=== PATIENT | female | born 1940 | race Caucasian/White ===

== ENCOUNTER → 2017-01-31 | Outpatient (CLI) | payer MEDICARE, OTHER ==
[~2017-01-31] MED LIST: ASPI-587 PO; LISI10TA2 PO; METO-272 PO; OMEG-11 PO; SIMV20TA3 PO
== END ==
LOC: CARD 08:46
PROVIDERS: ATTEND Physician Assistant
DX: I10 Essential (primary) hypertension (principal); E78.2 Mixed hyperlipidemia; R00.2 Palpitations
CPT/HCPCS: 93306

== ENCOUNTER → 2017-02-07 | Outpatient (CLI) | payer MEDICARE, OTHER ==
--- NOTE | 2017-02-07 12:05 | Diagnostic Imaging Report ---
EXAMINATION: DEXA scan. INDICATION: Osteopenia. TECHNIQUE: Bone mineral density estimated based on dual energy radiography over the lumbar spine and femoral necks, was performed. FINDINGS: The lumbar spine T-score is 0.9. This is 19% increased density measurement compared to 10/29/2006 study. T score over the left femoral neck is 0.2 and on the right side is 0.3. This is 2.5% decreased density measurement compared to 2006. IMPRESSION: Bone mineral density measurements are within normal limits. Dictated by: Dictated on workstation # [id number]
== END ==
LOC: RAD 08:57
PROVIDERS: ATTEND Obstetrics & Gynecology
DX: Z13.820 Encounter for screening for osteoporosis (principal)
CPT/HCPCS: 77080

== ENCOUNTER 2017-05-11 23:48 | Inpatient (IN) | payer MEDICARE, OTHER ==
[~2017-05-11] VITALS: Ht 165.1 cm; Wt 81.6 kg
[2017-05-12] MEDS ORDERED: ONDANSETRON 4 MG/2 ML (SDV) Z0FRAN IVP ONE ×3 (00:45→04:45)
[2017-05-12] MEDS ORDERED: KETOROLAC 30 MG/ML VIAL IVP ONE (00:45)
[2017-05-12 00:52] LABS: BILIRUBIN,URINE NEGATIVE (NEGATIVE); CLARITY,URINE CLEAR; COLOR,URINE YELLOW; GLUCOSE, URINE (UA) NEGATIVE (NEGATIVE); KETONES,URINE NEGATIVE (NEGATIVE); LEUKOCYTE ESTERASE ,URINE 3+ (NEGATIVE); NITRITE,URINE NEGATIVE (NEGATIVE); PH,URINE 5 (5-9); PROTEIN,URINE NEGATIVE (NEGATIVE); UROBILINOGEN,URINE NORMAL (NORMAL)
--- NOTE | 2017-05-12 01:00 | ED Back Pain ---
General Chief Complaint: Back Problems Stated Complaint: L AB/SIDE PAIN Nursing Triage Note: PT REPORTS L FLANK PAIN SINCE THIS AM. SHE ALSO C/O N/V. SHE DENIES FEVER OR URINARY S/S. Nursing Sepsis Screen: No Definite Risk Source of Information: Patient, Other Exam Limitations: No Limitations History of Present Illness Date Seen by Provider: May 12, 2017 Time Seen by Provider: 00:59 Initial Comments Patient resists ER by private conveyance with chief complaint of some pain in her left lower back and left flank that started this morning is progressively gotten worse and it is not radiating and described as sharp waxing and waning but constant. Movement makes it worse. She had some nausea and vomited twice now with no blood in it. No diarrhea she is typically constipated and her bowels of been moving the same as usual. She has not had any surgeries on her back or abdomen. She has not had any recent trauma. She does not have sciatica. She has no incontinence of bowel or bladder. Allergies and Home Medications Allergies Coded Allergies: No Known Drug Allergies (Unverified , 06/29/14) Home Medications Aspirin 81 Mg Tablet.dr, 81 MG PO DAILY, (Reported) Lisinopril 10 Mg Tablet, 10 MG PO DAILY, (Reported) Metoprolol Succinate 50 Mg Tab.sr.24h, 50 MG PO DAILY, (Reported) [place]-3S/Dha/Epa/Fish Oil 1 Each Capsule, 2 EACH PO DAILY, (Reported) Simvastatin 20 Mg Tablet, 20 MG PO DAILY, (Reported) Patient Home Medication List Home Medication List Reviewed: Yes Constitutional: No chills, No diaphoresis, No fever, No malaise EENTM: No ear pain, No eye pain Respiratory: No cough Cardiovascular: No chest pain, No palpitations Gastrointestinal: abdominal pain (Left flank), constipation, No diarrhea, nausea, vomiting Genitourinary: No discharge, No dysuria Musculoskeletal: see HPI, back pain Past Krisyoj-Bqroof-Jajjur Hx Patient Social History Alcohol Use: Rarely Uses Recreational Drug Use: No Smoking Status: Never a Smoker 2nd Hand Smoke Exposure: No Recent Foreign Travel: No Contact w/Someone Who Travel: No Recent Infectious Disease Expo: No Recent Hopitalizations: No Immunizations Up To Date Date of Influenza Vaccine: Dec 29, 2013 Seasonal Allergies Seasonal Allergies: No Surgeries History of Surgeries: Yes Surgeries: Orthopedic Respiratory History of Respiratory Disorde: No Cardiovascular History of Cardiac Disorders: Yes (DR. MARTINEZ) Cardiac Disorders: Hypertension Neurological History of Neurological Disord: No Gastrointestinal History of Gastrointestinal Di: No Musculoskeletal History of Musculoskeletal Dis: No Endocrine History of Endocrine Disorders: No Physical Exam Vital Signs Vital Signs - First Documented 05/12/17 00:05 Temp 98.9 Pulse 80 Resp 16 B/P (MAP) 133/76 (95) Pulse Ox 97 O2 Delivery Room Air Capillary Refill : Less Than 3 Seconds General Appearance: WD/WN, Moderate Distress HEENT: PERRL/EOMI, Normal ENT Inspection, Pharynx Normal (oral mucosa mildly dry) Neck: Full Range of Motion, Supple Cardiovascular: Regular Rate, Rhythm, No Murmur, Normal Peripheral Pulses Respiratory: Chest Non Tender, Lungs Clear, Normal Breath Sounds, No Accessory Muscle Use, No Respiratory Distress Gastrointestinal: Non Tender, Soft Back: Normal Inspection, No Vertebral Tenderness, CVA Tenderness (L), No CVA Tenderness (R) Extremity: Normal Capillary Refill, Non Tender, No Pedal Edema Neurologic/Psychiatric: Alert, Oriented x3 Skin: Normal Color, Warm/Dry Progress/Results/Core Measures Results/Orders Lab Results Laboratory Tests Test 05/12/17 00:05 05/12/17 00:06 Range/Units White Blood Count 7.8 4.3-11.0 10^3/uL Red Blood Count 4.72 4.35-5.85 10^6/uL Hemoglobin 14.5 11.5-16.0 G/DL Hematocrit 43 35-52 % Mean Corpuscular Volume 91 80-99 FL Mean Corpuscular Hemoglobin 31 25-34 PG Mean Corpuscular Hemoglobin Concent 34 32-36 G/DL Red Cell Distribution Width 13.4 10.0-14.5 % Platelet Count 327 130-400 10^3/uL Mean Platelet Volume 9.8 7.4-10.4 FL Neutrophils (%) (Auto) 78 H 42-75 % Lymphocytes (%) (Auto) 15 12-44 % Monocytes (%) (Auto) 7 0-12 % Eosinophils (%) (Auto) 1 0-10 % Basophils (%) (Auto) 0 0-10 % Neutrophils # (Auto) 6.0 1.8-7.8 X 10^3 Lymphocytes # (Auto) 1.2 1.0-4.0 X 10^3 Monocytes # (Auto) 0.5 0.0-1.0 X 10^3 Eosinophils # (Auto) 0.0 0.0-0.3 10^3/uL Basophils # (Auto) 0.0 0.0-0.1 10^3/uL Sodium Level 141 135-145 MMOL/L Potassium Level 3.6 3.6-5.0 MMOL/L Chloride Level 105 98-107 MMOL/L Carbon Dioxide Level 25 21-32 MMOL/L Anion Gap 11 5-14 MMOL/L Blood Urea Nitrogen 12 7-18 MG/DL Creatinine 1.01 0.60-1.30 MG/DL Estimat Glomerular Filtration Rate 53 BUN/Creatinine Ratio 12 Glucose Level 137 H 70-105 MG/DL Calcium Level 10.5 H 8.5-10.1 MG/DL Magnesium Level 2.1 1.8-2.4 MG/DL Total Bilirubin 0.7 0.1-1.0 MG/DL Aspartate Amino Transf (AST/SGOT) 23 5-34 U/L Alanine Aminotransferase (ALT/SGPT) 24 0-55 U/L Alkaline Phosphatase 77 40-136 U/L Total Protein 7.9 6.4-8.2 GM/DL Albumin 4.6 H 3.2-4.5 GM/DL Urine Color YELLOW Urine Clarity CLEAR Urine pH 5 5-9 Urine Specific [place] 1.025 H 1.016-1.022 Urine Protein NEGATIVE NEGATIVE Urine Glucose (UA) NEGATIVE NEGATIVE Urine Ketones NEGATIVE NEGATIVE Urine Nitrite NEGATIVE NEGATIVE Urine Bilirubin NEGATIVE NEGATIVE Urine Urobilinogen NORMAL NORMAL MG/DL Urine Leukocyte Esterase 3+ H NEGATIVE Urine RBC (Auto) 3+ H NEGATIVE Urine RBC 10-25 H /HPF Urine WBC 25-50 H /HPF Urine Squamous Epithelial Cells 5-10 /HPF Urine Crystals NONE /LPF Urine Bacteria FEW H /HPF Urine Casts NONE /LPF Urine Mucus NEGATIVE /LPF Urine Culture Indicated YES My Orders Orders - LAKEISHA CHESTER Ketorolac Injection (Toradol Injection) (05/12/17 00:45) Ua Culture If Indicated (05/12/17 00:34) Ondansetron Injection (Zofran Injectio (05/12/17 00:45) Ct Abd/Pelvis Wo(Kidney Stone) (05/12/17 00:56) Saline Lock/Iv-Start (05/12/17 00:56) Cbc With Automated Diff (05/12/17 00:56) Comprehensive Metabolic Panel (05/12/17 00:56) Magnesium (05/12/17 00:56) Urine Culture (05/12/17 00:06) Fentanyl Injection (Sublimaze Injection (05/12/17 01:45) Fentanyl Injection (Sublimaze Injection (05/12/17 01:38) Ondansetron Injection (Zofran Injectio (05/12/17 02:00) Morphine Injection (Morphine Injection (05/12/17 04:00) Ondansetron Injection (Zofran Injectio (05/12/17 04:45) 1/2 Ns W/Kcl 20 Meq/L (0.45% Sodium Chlo (05/12/17 04:45) Medications Given in ED Current Medications Medications Dose Ordered Sig/Amari Route Start Time Stop Time Status Last Admin Dose Admin Fentanyl Citrate 50 mcg ONCE ONCE IVP 05/12/17 01:45 05/12/17 01:46 DC 05/12/17 01:44 50 MCG Ketorolac Tromethamine 10 mg ONCE ONCE IVP 05/12/17 00:45 05/12/17 00:46 DC 05/12/17 00:44 10 MG Morphine Sulfate 2 mg ONCE ONCE IVP 05/12/17 04:00 05/12/17 04:01 DC 05/12/17 04:02 2 MG Ondansetron HCl 4 mg ONCE ONCE IVP 05/12/17 00:45 05/12/17 00:46 DC 05/12/17 00:44 4 MG Ondansetron HCl 4 mg ONCE ONCE IVP 05/12/17 02:00 05/12/17 03:00 DC 05/12/17 01:50 4 MG Ondansetron HCl 4 mg ONCE ONCE IVP 05/12/17 04:45 05/12/17 04:46 DC 05/12/17 04:02 4 MG Vital Signs/I&O Vital Sign - Last 12Hours 05/12/17 00:05 Temp 98.9 Pulse 80 Resp 16 B/P (MAP) 133/76 (95) Pulse Ox 97 O2 Delivery Room Air Blood Pressure Mean: 95 Progress Note : Time: 03:56 Progress Note Pain persists in reviewing some more Zofran. We spoke with Dr. Gama about a small bowel obstruction based on CT imaging. He recommends morphine, Zofran and he'll see the patient in the morning. There is no fluid in the stomach so NG tube is not necessary. Diagnostic Imaging Diagonstic Imaging: CT Plain Films/CT/US/NM/MRI: abdomen, pelvis Comments Cluster of mildly dilated distal small bowel loops in the anterior left abdomen containing air and fecal like small bowel contents distally. Findings may be related to adhesions internal hernia or other etiology with component of partial or early obstruction not excluded. Clinical correlation recommended. No hydronephrosis or ureteral calculus. Reviewed: Reviewed [place] Study, Reviewed by Me Departure Communication (Admissions) Time/Spoke to Admitting Phy: 03:58 Communication Discussed case lab imaging findings with Dr. Gama he recommends morphine and Zofran. Impression Impression: Primary Impression: Small bowel obstruction Disposition: ADMITTED INPATIENT Condition: Stable Admissions Decision to Admit Reason: Admit from ER (General) Decision to Admit/Date: May 12, 2017 Time/Decision to Admit Time: 03:58 Departure-Patient Inst. Referrals: CASSI MARTINEZ MD (PCP) Primary Care Physician CLAYTON CRANE MD (Family) Primary Care Physician Copy Copies To 1: CASSI MARTINEZ MD, TITUS J May 12, 2017 01:00
[2017-05-12 01:02] LABS: BASOPHILS % (AUTO) 0 % (0-10); EOSINOPHILS % (AUTO) 1 % (0-10); HEMATOCRIT 43 % (35-52); HEMOGLOBIN 14.5 G/DL (11.5-16.0); LYMPHOCYTES # (AUTO) 1.2 X 10^3 (1.0-4.0); LYMPHOCYTES % (AUTO) 15 % (12-44); MEAN CORPUSCULAR HEMOGLOBIN 31 PG (25-34); MEAN CORPUSCULAR HGB CONC 34 G/DL (32-36); MEAN CORPUSCULAR VOLUME 91 FL (80-99); MEAN PLATELET VOLUME 9.8 FL (7.4-10.4); MONOCYTES # (AUTO) 0.5 X 10^3 (0.0-1.0); MONOCYTES % (AUTO) 7 % (0-12); NEUTROPHILS % (AUTO) 78 % (42-75); PLATELET COUNT 327 10^3/uL (130-400); RED BLOOD COUNT 4.72 10^6/uL (4.35-5.85); RED CELL DISTRIBUTION WIDTH 13.4 % (10.0-14.5); WHITE BLOOD COUNT 7.8 10^3/uL (4.3-11.0)
[2017-05-12 01:08] LABS: BACTERIA,URINE FEW /HPF; WBC,URINE 25-50 /HPF
[2017-05-12 01:17] LABS: ALBUMIN 4.6 GM/DL (3.2-4.5); BILIRUBIN,TOTAL 0.7 MG/DL (0.1-1.0); CALCIUM 10.5 MG/DL (8.5-10.1); CREATININE SERUM 1.01 MG/DL (0.60-1.30); MAGNESIUM 2.1 MG/DL (1.8-2.4); POTASSIUM 3.6 MMOL/L (3.6-5.0); TOTAL PROTEIN 7.9 GM/DL (6.4-8.2)
[2017-05-12] MEDS ORDERED: fentaNYL INJECTION 100 MCG/2 ML AMP ONE (01:38)
[2017-05-12] MEDS ORDERED: fentaNYL INJECTION 100 MCG/2 ML AMP IVP ONE (01:45)
[2017-05-12] MEDS ORDERED: morphine INJ 10 MG/ML 1ML (SYR OR VIAL) IVP ONE ×2 (04:00→06:15)
[2017-05-12] MEDS ORDERED: 1/2 NS W/KCL 20 MEQ/L 1,000 ML IV SCH ×2 (04:45→08:00)
--- NOTE | 2017-05-12 07:25 | Diagnostic Imaging Report ---
PROCEDURE: CT urinary tract, rule out kidney stone. TECHNIQUE: Multiple contiguous axial images were obtained through the abdomen and pelvis without the use of intravenous contrast. INDICATION: Abdominal pain. COMPARISON: None. FINDINGS: Lung bases are clear. 0.6 cm low-attenuation in the right hepatic lobe is nonspecific but may represent a benign cyst or hemangioma. The liver, pancreas, spleen, adrenals, kidneys, collecting systems and appendix are negative on this noncontrast exam. Moderate atherosclerotic calcifications including a normal caliber abdominal aorta. No free intraperitoneal air or fluid. No lymphadenopathy. No evidence of bowel obstruction. Moderate spondylotic changes in the visualized spine. No acute osseous findings. IMPRESSION: No acute CT findings in the abdomen or pelvis. Specifically, there is no evidence of bowel obstruction. Report was faxed to [facility] ER by mela at 9:17am. Findings were also discussed with Dr. Hoyos by Dr. Francois. SANDRA Stevens, was also notified. Dictated by: Dictated on workstation # [id number]
[2017-05-12 08:00] VITALS: BP 145/79
[2017-05-12] MEDS ORDERED: CATHETER FLUSH 10 ML SYR IV PRN (08:00)
[2017-05-12] MEDS ORDERED: ONDANSETRON 4 MG/2 ML (SDV) Z0FRAN IV PRN (08:00)
[2017-05-12] MEDS: morphine INJ 4 MG/ML 1 ML (VIAL/SYRINGE) IV PRN ×2 (08:10→11:03)
[2017-05-12] MEDS ORDERED: lisINopril 10 MG (PRINIVIL) TABLET PO SCH ×2 (09:00→12:15)
[2017-05-12] MEDS ORDERED: CEPHALEXIN 250 MG (KEFLEX) CAP PO SCH (11:45)
[2017-05-12] MEDS ORDERED: KETOROLAC 15 MG/ML VIAL IVP PRN (11:45)
--- NOTE | 2017-05-12 11:53 | History & Physical-Surgical ---
History of Present Illness History of Present Illness Reason for visit/HPI Pt was admitted to me last night for possible SBO. HPI per ED: Patient presents ER by private conveyance with chief complaint of some pain in her left lower back and left flank that started this morning is progressively gotten worse and it is not radiating and described as sharp waxing and waning but constant. Movement makes it worse. She had some nausea and vomited twice now with no blood in it. No diarrhea she is typically constipated and her bowels of been moving the same as usual. She has not had any surgeries on her back or abdomen. She has not had any recent trauma. She does not have sciatica. She has no incontinence of bowel or bladder. When I talked to pt she said that she woke up at 4:30 Saturday morning, went to the bathroom and then went back to bed and when she woke she had a left hip pain that started getting progressively worse. She states she was able to find a position on the couch (moving hip around to find it) where she had no pain and laid down like that for a while. The pain continued to get worse and then she vomited; she states she vomits when she has very bad pain. She has history of chronic constipation, colonoscopy was normal last year and told by her physician to take laxatives daily. She states she has never had pain like this , she has had back pain but this is different. Pain was worse with movement and rated 7 out of 10 at its worst. Pain didn't go away and so she finally decided to come to the ER. She denies fall or trauma to this area. She denies any dysuria or hematuria. Right now her only complaint is this hip pain, that is only helped by the pain medications. Date of Admission May 12, 2017 at 03:00 Time Seen by Provider: 11:01 I consulted on this patient on 05/12/17 11:46 Attending Physician Milo Gama DO Admitting Physician Gerda Abrams MD Consult Allergies and Home Medications Allergies Coded Allergies: No Known Drug Allergies (Unverified , 06/29/14) Home Medications Aspirin 81 Mg Tablet.dr, 81 MG PO DAILY, (Reported) Lisinopril 10 Mg Tablet, 10 MG PO DAILY, (Reported) Metoprolol Succinate 50 Mg Tab.sr.24h, 50 MG PO DAILY, (Reported) [place]-3S/Dha/Epa/Fish Oil 1 Each Capsule, 2 EACH PO DAILY, (Reported) Simvastatin 20 Mg Tablet, 20 MG PO DAILY, (Reported) Patient Home Medication List Home Medication List Reviewed: Yes Past Nlbpeaf-Ahocrb-Kfzvyx Hx Patient Social History Alcohol Use: Rarely Uses Number of Drinks Today: 0 Recreational Drug Use: No Smoking Status: Former Smoker Type Used: Cigarettes 2nd Hand Smoke Exposure: No Recent Foreign Travel: No Contact w/Someone Who Travel: No Recent Infectious Disease Expo: No Recent Hopitalizations: No Physical Abuse Screen: No Sexual Abuse: No Immunizations Up To Date Date of Influenza Vaccine: Jan 29, 2017 Seasonal Allergies Seasonal Allergies: Yes Surgeries History of Surgeries: Yes Surgeries: Orthopedic Respiratory History of Respiratory Disorde: No Cardiovascular History of Cardiac Disorders: Yes (SEES DR ABRAMS ) Cardiac Disorders: Hypertension Neurological History of Neurological Disord: No Genitourinary History of Genitourinary Disor: No Gastrointestinal History of Gastrointestinal Di: Yes Gastrointestinal Disorders: Gastroesophageal Reflux, Chronic Constipation Musculoskeletal History of Musculoskeletal Dis: Yes Musculoskeletal Disorders: Arthritis Endocrine History of Endocrine Disorders: Yes (WHEN YOUNGER HAD THROID PROBLEMS ) HEENT History of HEENT Disorders: No Cancer History of 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 ) Psychosocial History of Psychiatric Problem: No Integumentary History of Skin or Integumenta: Yes Skin/Integumentary Disorders: Psoriasis Blood Transfusions History of Blood Disorders: No Adverse Reaction to a Blood Tr: Yes Family Medical History Significant Family History: Cancer (brother), Diabetes (mother), Hypertension ( mother and brother), Other Conditions/Hx (Brother has Rheumatoid Arthritis) Constitutional: No chills, No diaphoresis, weakness EENTM: No blurred vision, No double vision, No hoarseness, No mouth pain, No epistaxis, No throat swelling Respiratory: No cough, No dyspnea on exertion, No hemoptysis Cardiovascular: No chest pain, No edema, No palpitations Gastrointestinal: constipation, No diarrhea, nausea, vomiting Genitourinary: No dysuria, No frequency, No hematuria, No hesitancy : No Musculoskeletal: back pain, joint pain, muscle stiffness Skin: No change in color, No change in hair/nails Psychiatric/Neurological: Denies Anxiety, Denies Depressed, Denies Seizure, Denies Tremors, Denies Weakness Other pt denies any abnormal bleeding or bruising, no heat or cold intolerance Physical Exam Vital Signs Vital Signs - First Documented 05/12/17 00:05 Temp 98.9 Pulse 80 Resp 16 B/P (MAP) 133/76 (95) Pulse Ox 97 O2 Delivery Room Air Capillary Refill : Less Than 3 Seconds General Appearance: No Apparent Distress, WD/WN Eyes: Bilateral Eye PERRL, Bilateral Eye EOMI HEENT: Pharynx Normal, Moist Mucous Membranes, No Pale Conjunctivae (L), No Pale Conjunctivae (R), No Scleral Icterus (L), No Scleral Icterus (R) Neck: Full Range of Motion, Normal Inspection, Non Tender, Supple Respiratory: Chest Non Tender, Lungs Clear, Normal Breath Sounds, No Accessory Muscle Use, No Respiratory Distress Cardiovascular: Regular Rate, Rhythm, No Edema, No Murmur Gastrointestinal: Normal Bowel Sounds, No Organomegaly, No Pulsatile Mass, Non Tender, Soft Rectal: Deferred Back: No CVA Tenderness, No Vertebral Tenderness Extremity: Normal Capillary Refill, Normal Inspection, Normal Range of Motion, Non Tender, No Calf Tenderness, Other (Pt has left hip pain that is reproducible with palpatioln) Neurologic/Psychiatric: Alert, Oriented x3, No Motor/Sensory Deficits, Normal 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, 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 as 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 Skin: Normal Color, Warm/Dry Lymphatic: No Adenopathy (neck, axilla or groin) Data Review Labs Laboratory Tests 05/12/17 00:05: White Blood Count 7.8, Red Blood Count 4.72, Hemoglobin 14.5, Hematocrit 43, Mean Corpuscular Volume 91, Mean Corpuscular Hemoglobin 31, Mean Corpuscular Hemoglobin Concent 34, Red Cell Distribution Width 13.4, Platelet Count 327, Mean Platelet Volume 9.8, Neutrophils (%) (Auto) 78H, Lymphocytes (%) (Auto) 15 , Monocytes (%) (Auto) 7, Eosinophils (%) (Auto) 1, Basophils (%) (Auto) 0, Neutrophils # (Auto) 6.0, Lymphocytes # (Auto) 1.2, Monocytes # (Auto) 0.5, Eosinophils # (Auto) 0.0, Basophils # (Auto) 0.0, Sodium Level 141, Potassium Level 3.6, Chloride Level 105, Carbon Dioxide Level 25, Anion Gap 11, Blood Urea Nitrogen 12, Creatinine 1.01, Estimat Glomerular Filtration Rate 53, BUN/ Creatinine Ratio 12, Glucose Level 137H, Calcium Level 10.5H, Magnesium Level 2.1, Total Bilirubin 0.7, Aspartate Amino Transf (AST/SGOT) 23, Alanine Aminotransferase (ALT/SGPT) 24, Alkaline Phosphatase 77, Total Protein 7.9, Albumin 4.6H 05/12/17 00:06: Urine Color YELLOW, Urine Clarity CLEAR, Urine pH 5, Urine Specific [place] 1.025H, Urine Protein NEGATIVE, Urine Glucose (UA) NEGATIVE, Urine Ketones NEGATIVE, Urine Nitrite NEGATIVE, Urine Bilirubin NEGATIVE, Urine Urobilinogen NORMAL, Urine Leukocyte Esterase 3+H, Urine RBC (Auto) 3+H, Urine RBC 10-25H, Urine WBC 25-50H, Urine Squamous Epithelial Cells 5-10, Urine Crystals NONE, Urine Bacteria FEWH, Urine Casts NONE, Urine Mucus NEGATIVE, Urine Culture Indicated YES Assessment/Plan Assessment/Plan Admission Diagonsis Left Hip Pain UTI Gastritis HTN Admission Status: Observation Assessment/Plan 1. Left hip pain 2. UTI 3. Gastric wall thickening, possible gastritis vs. non-dilation of stomach looking like gastritis 4. HTN I will stop the morpine and write for Toradol IV for her musculoskeletal pain. I wrote for a regular diet and will see how she does. She probably needs an EGD as an outpt. Urine looks like a UTI so I started Keflex 500mg BID. I have heplocked her IV and will encourage PO intake. I think the "dilated bowel in LUQ" is actually all colon and not small bowel. Pt does not have a SBO and in fact the radiologist reading specifically says no bowel obstruction. She can restart her HTN medications. Clinical Quality Measures DVT/VTE Risk/Contraindication: Risk Factor Score Per Nursin RFS Level Per Nursing on Admit: 2=Moderate MILO GAMA DO May 12, 2017 11:53
[2017-05-12 12:00] VITALS: BP 125/64
[2017-05-12] MEDS ORDERED: meTOproloL SUCCINATE 50 MG (TOPROL XL) TAB PO SCH (12:15)
--- NOTE | 2017-05-12 13:27 | Discharge Inst-Surgical ---
Discharge Inst-Surgical Depart Medication/Instructions New, Converted or Re-Newed RX: Call to Patients Pharmacy Patient Instructions Follow up Appt: Make appointment with Dr. Romeo for 1 week. Instructions: No strenuous activity. May shower or take a bath. No Smoking Symptoms to Report: Appetite Changes, Extremity Discoloration, Numbness/Tingling, Swelling Increased , Bleeding Excessive, Eyesight Changes, Pain Increased, Urine Color Change, Constipation(Persistent), Fever over 101 degree F, Pain/Pressure in chest, Urinating Difficulty, Cough Up/Vomit Blood, Heart Beat Irreg/Pounding, Pain/ Pressure in jaw, Vaginal Bleeding Increase, Cramps in feet or legs, Lightheadedness, Pain/Pressure in shoulder, Diarrhea(Persistent), Memory Changes Suddenly, Questions/Concerns, Weight gain consecutive days, Dizziness/ Fainting, Nausea/Vomiting, Shortness of Breath, Weight gain over 2 pounds If questions or concerns contact your physician Or seek help at emergency department. Activity Activity as Tolerated: Yes Driving Instructions: You May Drive Diet Discharge Diet: No Restrictions If Any Problems/Questions/Issu: Contact Your Physician, Go to Emergency Room Skin/Wound Care Infection Signs and Symptoms: Increased Redness, Foul Odor of Wound, Increased Drainage, Skin Itchy or Has a Rash, Increased Swelling, Temperature Above 101 F JOSIANE ALANIZ DO May 12, 2017 13:27
[2017-05-12] MEDS ORDERED: SIMV20TA3 PO (13:32)
[2017-05-12] MEDS ORDERED: ASPI-983 PO (13:32)
[2017-05-12] MEDS ORDERED: LISI-552 PO (13:32)
[2017-05-12] MEDS ORDERED: AMLO5TAB2 PO (13:32)
[2017-05-12] MEDS ORDERED: METH2.5T PO (13:32)
[2017-05-12] MEDS ORDERED: FOLI0.4T2 PO (13:33)
[2017-05-12] MEDS ORDERED: CEPH250C PO (13:39)
[2017-05-12] MEDS ORDERED: KETO10TA PO (13:39)
--- OUTSIDE RECORDS SUMMARY | 2017-05-12 14:22 | XMS REPORT | Continuity of Care Document ---
Author Author [facility] Organization [facility] Address Unknown Phone Unavailable Allergies Active Description Code Type Severity Reaction Onset Reported/Identified Relationship to Patient Clinical Status Yes No Known Drug Allergies [id number] Drug Allergy Unknown N/A 06/29/2014 Medications There is no data. 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 07/27/2015 ESTER ALLISON Ot 272.4 HYPERLIPIDEMIA NEC/NOS 07/27/2015 ESTER ALLISON Ot 401.9 HYPERTENSION NOS 07/27/2015 ESTER ALLISON Ot 416.8 CHR PULMON HEART DIS NEC 07/27/2015 ESTER ALLISON Ot 433.10 CAROTID ARTERY OCCLUSION W O CEREBRAL IN 07/27/2015 MELCHOR JENKINS, TAYLOR Bustillos Ot V72.84 EXAM PRE-OPERATIVE NOS 07/27/2015 CASSI MARTINEZ MD Ot Z12.31 ENCNTR SCREEN MAMMOGRAM FOR MALIGNANT NE 07/28/2015 CASSI MARTINEZ MD Ot Z12.31 ENCNTR SCREEN MAMMOGRAM FOR MALIGNANT NE 08/22/2015 CASSI MARTINEZ MD Ot Z12.31 ENCNTR SCREEN MAMMOGRAM FOR MALIGNANT NE 01/19/2016 Ot 401.9 HYPERTENSION NOS 01/19/2016 Ot 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 01/19/2016 ESTER ALLISON Ot 272.4 HYPERLIPIDEMIA NEC/NOS 01/19/2016 ESTER ALLISON Ot 401.9 HYPERTENSION NOS 01/19/2016 YASMANI FLORES, ESTER Brown Ot 416.8 CHR PULMON HEART DIS NEC 01/19/2016 ESTER ALLISON Ot 433.10 CAROTID ARTERY OCCLUSION W O CEREBRAL IN 01/19/2016 TAYLOR ROCHE MD Ot V72.84 EXAM PRE-OPERATIVE NOS 01/19/2016 JUAN JENKINS, CASSI Lazaro Ot Z12.31 ENCNTR SCREEN MAMMOGRAM FOR MALIGNANT NE 01/19/2016 Ot 401.9 HYPERTENSION NOS 01/19/2016 Ot 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 01/19/2016 ESTER ALLISON Ot 272.4 HYPERLIPIDEMIA NEC/NOS 01/19/2016 ESTER ALLISON Ot 401.9 HYPERTENSION NOS 01/19/2016 YASMANI FLORES, ESTER Brown Ot 416.8 CHR PULMON HEART DIS NEC 01/19/2016 ESTER ALLISON Ot 433.10 CAROTID ARTERY OCCLUSION W O CEREBRAL IN 01/19/2016 TAYLOR ROCHE MD Ot V72.84 EXAM PRE-OPERATIVE NOS 01/19/2016 JUAN JENKINS, CASSI Lazaro Ot Z12.31 ENCNTR SCREEN MAMMOGRAM FOR MALIGNANT NE 01/20/2016 ESTER ALLISON Ot E78.2 MIXED HYPERLIPIDEMIA 01/20/2016 ESTER ALLISON Ot I10 ESSENTIAL (PRIMARY) HYPERTENSION 01/20/2016 ESTER ALLISON Ot R00.2 PALPITATIONS 01/20/2016 ESTER ALLISON Ot E78.2 MIXED HYPERLIPIDEMIA 01/20/2016 ESTER ALLISON Ot I10 ESSENTIAL (PRIMARY) HYPERTENSION 01/20/2016 ESTER ALLISON Ot R00.2 PALPITATIONS 02/10/2016 ESTER ALLISON Ot E78.2 MIXED HYPERLIPIDEMIA 02/10/2016 ESTER ALLISON Ot I10 ESSENTIAL (PRIMARY) HYPERTENSION 02/10/2016 ESTER ALLISON Ot R00.2 PALPITATIONS 02/23/2016 ESTER ALLISON Ot E78.2 MIXED HYPERLIPIDEMIA 02/23/2016 ESTER ALLISON Ot I10 ESSENTIAL (PRIMARY) HYPERTENSION 02/23/2016 ESTER ALLISON Ot R00.2 PALPITATIONS 01/22/2017 DELBERT GARNETT DO S Ot Z13.820 ENCOUNTER FOR SCREENING FOR OSTEOPOROSIS 01/22/2017 DELBERT GARNETT DO S Ot Z78.0 ASYMPTOMATIC MENOPAUSAL STATE 01/29/2017 ESTER ALLISON Ot 272.4 HYPERLIPIDEMIA NEC/NOS 01/29/2017 ESTER ALLISON Ot 401.9 HYPERTENSION NOS 01/29/2017 ESTER ALLISON Ot 416.8 CHR PULMON HEART DIS NEC 01/29/2017 ESTER ALLISON Ot 433.10 CAROTID ARTERY OCCLUSION W O CEREBRAL IN 01/29/2017 MELCHOR JENKINS, TAYLOR Bustillos Ot V72.84 EXAM PRE-OPERATIVE NOS 01/29/2017 JUAN JENKINS, CASSI Lazaro Ot Z12.31 ENCNTR SCREEN MAMMOGRAM FOR MALIGNANT NE 01/29/2017 ESTER ALLISON Ot E78.2 MIXED HYPERLIPIDEMIA 01/29/2017 ESTER ALLISON Ot I10 ESSENTIAL (PRIMARY) HYPERTENSION 01/29/2017 ESTER ALLISON Ot R00.2 PALPITATIONS 01/29/2017 DELBERT GARNETT DO S Ot Z78.0 ASYMPTOMATIC MENOPAUSAL STATE 01/31/2017 DELBERT GARNETT DO S Ot Z78.0 ASYMPTOMATIC MENOPAUSAL STATE 02/01/2017 ESTER ALLISON Ot E78.2 MIXED HYPERLIPIDEMIA 02/01/2017 ESTER ALLISON Ot I10 ESSENTIAL (PRIMARY) HYPERTENSION 02/01/2017 ESTER ALLISON Ot R00.2 PALPITATIONS 02/06/2017 DELBERT GARNETT DO S Ot Z78.0 ASYMPTOMATIC MENOPAUSAL STATE 02/21/2017 ESTER ALLISON Ot E78.2 MIXED HYPERLIPIDEMIA 02/21/2017 ESTER ALLISON Ot I10 ESSENTIAL (PRIMARY) HYPERTENSION 02/21/2017 ESTER ALLISON Ot R00.2 PALPITATIONS 03/01/2017 DELBERT GARNETT DO Ot Z13.820 ENCOUNTER FOR SCREENING FOR OSTEOPOROSIS Procedures There is no data. Results There is no data. Encounters ACCT No. Visit Date/Time Discharge Status Pt. Type Provider Facility Loc./Unit Complaint [id number] 02/07/2017 08:57:00 02/07/2017 23:59:59 CLS Outpatient DELBERT GARNETT DO [facility] RAD Z13.820 SCREENING OSTEOPOROSIS [id number] 01/31/2017 10:15:00 01/31/2017 23:59:59 CLS Preadmit ESTER ALLISON [facility] RAD Z12.31 [id number] 01/31/2017 08:46:00 01/31/2017 23:59:59 CLS Outpatient ESTER ALLISON [facility] CARD HTN;Z12.31 [id number] 01/19/2016 09:31:00 01/19/2016 23:59:59 CLS Outpatient ESTER ALLISON [facility] CARD HTN,HLP, PALPITATIONS [id number] 07/27/2015 11:01:00 07/27/2015 23:59:59 CLS Outpatient CASSI MARTINEZ MD [facility] RAD SCREENING,CAROTID ARTERY STENOSIS,HTN,HLP [id number] 06/29/2014 07:25:00 06/29/2014 09:51:00 DIS Outpatient TAYLOR ROCHE MD [facility] SDC SCREENING [id number] 06/28/2014 10:33:00 06/28/2014 23:59:59 CLS Outpatient TAYLOR ROCHE MD [facility] PREOP SCREENING [id number] 08/05/2013 09:38:00 08/05/2013 23:59:59 CLS Outpatient ESTER ALLISON [facility] CARD CAROTID STENOSIS,HTN,HL [id number] 07/27/2015 11:01:00 Document Registration [id number] 07/27/2015 11:01:00 Document Registration [id number] 06/29/2011 08:58:00 Document Registration [id number] 07/11/2010 10:23:00 Document Registration
[2017-05-12 14:37] VITALS: BP 125/64
== END 2017-05-12 14:30 | disposition home or self-care (01) | DRG 556 ==
LOC: EDUNIT# 23:48 → ER 23:52 → 4TH 05-12 03:00
PROVIDERS: ADMIT Surgery; ATTEND Surgery
DX: M25.552 Pain in left hip (principal); N39.0 Urinary tract infection, site not specified; I10 Essential (primary) hypertension; K59.09 Other constipation; K21.9 Gastro-esophageal reflux disease without esophagitis
CPT/HCPCS: 36415; 74176; 80053; 81000; 83735; 85025; 87088

== ENCOUNTER → 2017-10-11 | Outpatient (CLI) | payer MEDICARE, OTHER ==
[~2017-10-11] MED LIST changes: +AMLO5TAB2 PO; +ASPI-983 PO; +CEPH250C PO; +FOLI0.4T2 PO; +KETO10TA PO; +LISI-552 PO; +MTX2.5T PO
--- NOTE | 2017-10-11 10:54 | Diagnostic Imaging Report ---
Clinical indication: Patient with acute right hip pain. No recent trauma. Pain started one month ago and hurts all day. Patient went to chiropractor last week and shortly after visit has pain and limp when walking. Exam: X-ray of the lumbar spine, 3 views. Comparison: None. Findings: There is no acute lumbar spine fracture or dislocation. There is abnormal straightening of the lumbar spine posture and mild right curvature of the lumbar spine. There are severely hypertrophic spurs seen throughout the lumbar spine and lower lumbar spine facet arthropathy. There is multilevel loss in disc height which is severe at the L2-L3 level, moderate to severe at the L5-S1 level, and moderate at the L3-L4 level. There is mild loss in intervertebral disc height at the L4-L5 level. Visualized portions of the sacroiliac joints unremarkable. Impression: 1. There is no acute fracture or dislocation. 2. 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 Dictated by: Dictated on workstation # [id number]
--- NOTE | 2017-10-11 11:04 | Diagnostic Imaging Report ---
Indication: Right hip pain. There is no fracture, dislocation, bony destructive process or avulsion. No acute periosteal reaction. Impression: No abnormality radiographically apparent. Dictated by: Dictated on workstation # [id number]
== END ==
LOC: RAD 08:49
PROVIDERS: ATTEND Family Medicine
DX: M47.816 Spondylosis without myelopathy or radiculopathy, lumbar region (principal)
CPT/HCPCS: 72100; 73502

== ENCOUNTER → 2018-02-03 | Outpatient (CLI) | payer MEDICARE, OTHER ==
[~2018-02-03] MED LIST changes: -AMLO5TAB2 PO; +AMLO5TAB7 PO
--- NOTE | 2018-02-03 09:54 | Diagnostic Imaging Report ---
Indication: Routine screening. Comparison is made with prior mammogram from 01/31/2017 and 07/27/2015. 2-D and 3-D bilateral screening mammography was performed with CAD. Scattered fibroglandular densities are identified bilaterally. Extensive vascular calcifications are noted bilaterally. Benign-appearing mass circumscribed nodule in the upper-outer right breast appears stable. No mass or malignant-appearing microcalcifications are seen. Axillae are unremarkable. Impression: BI-RADS category 2 No mammographic features suspicious for malignancy are identified. ACR BI-RADS Category 2: Benign findings. Result letter will be mailed to the patient. Note: At least 10% of breast cancer is not imaged by mammography. Dictated by: Dictated on workstation # [id number]
== END ==
LOC: RAD 08:26
PROVIDERS: ATTEND Internal Medicine
DX: Z12.31 Encounter for screening mammogram for malignant neoplasm of breast (principal)
CPT/HCPCS: 77067

== ENCOUNTER → 2018-08-07 | Outpatient (CLI) | payer MEDICARE, OTHER ==
[~2018-08-07] MED LIST changes: -AMLO5TAB7 PO; +AMLO5TAB9 PO
== END ==
LOC: CARD 12:29
PROVIDERS: ATTEND Internal Medicine Cardiovascular Disease
DX: I65.29 Occlusion and stenosis of unspecified carotid artery (principal); I10 Essential (primary) hypertension; R00.2 Palpitations; I07.1 Rheumatic tricuspid insufficiency
CPT/HCPCS: 93306

== ENCOUNTER → 2019-02-19 | Outpatient (CLI) | payer MEDICARE, OTHER ==
--- NOTE | 2019-02-19 20:01 | Diagnostic Imaging Report ---
INDICATION: Routine screening. Comparison is made with prior mammograms from 02/03/2018 and 01/31/2017. 2-D and 3-D bilateral screening mammography was performed. The current study was also evaluated with a Computer Aided Detection (CAD) system. 3-D tomosynthesis was also performed and reviewed. FINDINGS: Scattered fibroglandular densities are identified bilaterally. Circumscribed benign nodule in the outer right breast appears stable. Parenchymal and vascular calcifications are again noted bilaterally. No mass or malignant-appearing microcalcifications are seen. Axillae are unremarkable. IMPRESSION: No mammographic features suspicious for malignancy are identified. ACR BI-RADS Category 2: Benign findings. Result letter will be mailed to the patient. Note: At least 10% of breast cancer is not imaged by mammography. Dictated by: Dictated on workstation # [id number]
== END ==
LOC: RAD 14:23
PROVIDERS: ATTEND Internal Medicine
DX: Z12.31 Encounter for screening mammogram for malignant neoplasm of breast (principal)
CPT/HCPCS: 77067

== ENCOUNTER 2019-04-07 05:53 | Outpatient (CLI) | payer MEDICARE, OTHER ==
[~2019-04-07] VITALS: Ht 165.1 cm; Wt 81.8 kg
[~2019-04-07 05:53] MED LIST changes: +SIMV20TA26 PO
[2019-04-07] MEDS ORDERED: OMEG100032 PO (12:32)
[2019-04-07] MEDS ORDERED: APRE30TA2 PO (12:32)
[2019-04-07] MEDS ORDERED: ASPI-983 PO (12:32)
== END 2019-04-07 12:35 | disposition home or self-care (01) ==
LOC: PREOP 05:53
PROVIDERS: ATTEND Specialist
DX: Z01.818 Encounter for other preprocedural examination (principal)

== ENCOUNTER 2019-04-10 09:52 | Day surgery (SDC) | payer MEDICARE, OTHER ==
[~2019-04-10] VITALS: Ht 165 cm; Wt 81.8 kg
[~2019-04-10 09:52] MED LIST changes: +APRE30TA2 PO; +OMEG100032 PO
[2019-04-10 10:00] VITALS: BP 131/68
[2019-04-10] MEDS: TETRACAINE 0.5% OPHTH SOLN 4 ML BTL (SINGLE DOSE ONLY) OU PRN ×4 (10:11→10:46)
[2019-04-10] MEDS ORDERED: POVIDONE (BETADINE) OPHTH SOLN 5% 30 ML OP ONE (10:15)
[2019-04-10] MEDS ORDERED: TIMOLOL MALEATE 0.5% 5 ML (TIMOPTIC) BTL OU PRN (10:15)
[2019-04-10] MEDS ORDERED: LIDOCAINE PF 1% 2 ML VIAL IR PRN (10:15)
[2019-04-10] MEDS ORDERED: MOXIFLOXACIN OPHTH SOLN 5 MG/ML 0.3 ML SYRINGE OP ONE (10:15)
[2019-04-10] MEDS: CYCLOPENTOLATE 1% (CYCLOGYL) 2 ML DROPS OP SCH ×3 (10:25→10:46)
[2019-04-10] MEDS: PHENYLEPHRINE 10% OPHTH (NEO-SYN) 5 ML BTL OU SCH ×3 (10:25→10:46)
--- NOTE | 2019-04-10 11:12 | Ophthalmologist Pre-Op Note ---
Pre-Operative Progress Note H&P Reviewed The H&P was reviewed, patient examined and no changes noted. Date H&P Reviewed: Apr 10, 2019 Time H&P Reviewed: 11:12 Pre-Op Dx Cataract, Right Eye FREEDOM CABRERA MD Apr 10, 2019 11:12
[2019-04-10] MEDS ORDERED: MIDAZOLAM 2 MG/2 ML (VERSED) VIAL ONE (11:14)
[2019-04-10] MEDS ORDERED: acetaZOLAMIDE ER 500 MG CAP (DIAMOX SEQUELS) PO ONE (11:30)
--- NOTE | 2019-04-10 11:34 | Ophthalmology Operative Report ---
Cataract removal/placement IOL PREOPERATIVE DIAGNOSIS: Cataract Right Eye POSTOPERATIVE DIAGNOSIS: Cataract Right Eye PROCEDURE: Cataract removal and placement of posterior chamber implant, right eye SURGEON: Julien Cabrera ANESTHESIA: Topical with sedation COMPLICATIONS: None ESTIMATED BLOOD LOSS: Minimal DESCRIPTION OF PROCEDURE: After proper informed consent was obtained, the patient, a 78 female, was taken to the Operating Room and the right eye was anesthetized with tetracaine. The right eye was then prepped and draped in the usual manner. A wire lid speculum was placed. A paracentesis was made at the left hand position. Preservative free lidocaine was injected into the anterior chamber followed by viscoelastic. A clear corneal incision was made in the temporal position. A capsulorrhexis was preformed and the central nuclear and cortical material were removed. The posterior capsule was polished and Rhett 21.0 AU00T0 IOL was placed into the capsular bag. The residual viscoelastic was aspirated and balanced saline solution was injected into the anterior chamber. Moxifloxacin was injected into the anterior chamber. The wound was checked and found to be water tight. The patient tolerated the procedure well without complications. JULIEN CABRERA MD Apr 10, 2019 11:34
[2019-04-10 11:42] VITALS: BP 117/56
--- NOTE | 2019-04-10 15:12 | Anesthesia-General Post-Op ---
MAC Patient Condition Mental Status/LOC: Same as Preop Cardiovascular: Satisfactory Nausea/Vomiting: Absent Respiratory: Satisfactory Pain: Controlled Complications: Absent Post Op Complications Complications None Follow Up Care/Instructions Patient Instructions None needed. Anesthesiology Discharge Order Discharge Order Patient was seen after the procedure and she was doing well, no complaints, stable vital signs, no apparent adverse anesthesia problems. PHUONG CASEY DO Apr 10, 2019 15:12
== END 2019-04-10 11:42 | disposition home or self-care (01) ==
LOC: SDC 09:52
PROVIDERS: ATTEND Specialist
DX: H25.11 Age-related nuclear cataract, right eye (principal); I10 Essential (primary) hypertension; E78.5 Hyperlipidemia, unspecified; K21.9 Gastro-esophageal reflux disease without esophagitis; Z79.82 Long term (current) use of aspirin; Z87.891 Personal history of nicotine dependence; Z79.899 Other long term (current) drug therapy; Z80.3 Family history of malignant neoplasm of breast; Z83.3 Family history of diabetes mellitus

== ENCOUNTER 2019-04-22 05:34 | Outpatient (CLI) | payer MEDICARE, OTHER ==
[~2019-04-22] VITALS: Ht 165.1 cm; Wt 81.8 kg
== END 2019-04-22 15:20 | disposition home or self-care (01) ==
LOC: PREOP 05:34
PROVIDERS: ATTEND Specialist
DX: Z01.818 Encounter for other preprocedural examination (principal)

== ENCOUNTER 2019-04-24 09:32 | Day surgery (SDC) | payer MEDICARE, OTHER ==
[~2019-04-24] VITALS: Ht 165.1 cm; Wt 81.8 kg
[2019-04-24 10:00] VITALS: BP 125/63
[2019-04-24] MEDS ORDERED: LIDOCAINE PF 1% 2 ML VIAL IR PRN (10:00)
[2019-04-24] MEDS ORDERED: TIMOLOL MALEATE 0.5% 5 ML (TIMOPTIC) BTL OU PRN (10:00)
[2019-04-24] MEDS ORDERED: MOXIFLOXACIN OPHTH SOLN 5 MG/ML 0.3 ML SYRINGE OP ONE (10:00)
[2019-04-24] MEDS ORDERED: POVIDONE (BETADINE) OPHTH SOLN 5% 30 ML OP ONE (10:00)
[2019-04-24] MEDS: TETRACAINE 0.5% OPHTH SOLN 4 ML BTL (SINGLE DOSE ONLY) OU PRN ×4 (10:05→10:34)
[2019-04-24] MEDS: CYCLOPENTOLATE 1% (CYCLOGYL) 2 ML DROPS OP SCH ×3 (10:20→10:34)
[2019-04-24] MEDS: PHENYLEPHRINE 10% OPHTH (NEO-SYN) 5 ML BTL OU SCH ×3 (10:20→10:34)
[2019-04-24] MEDS ORDERED: acetaZOLAMIDE ER 500 MG CAP (DIAMOX SEQUELS) PO ONE (11:00)
--- NOTE | 2019-04-24 11:00 | Ophthalmologist Pre-Op Note ---
Pre-Operative Progress Note H&P Reviewed The H&P was reviewed, patient examined and no changes noted. Date H&P Reviewed: Apr 24, 2019 Time H&P Reviewed: 11:00 Pre-Op Dx Cataract, Left Eye FREEDOM CABRERA MD Apr 24, 2019 11:00
[2019-04-24] MEDS ORDERED: MIDAZOLAM 2 MG/2 ML (VERSED) VIAL ONE (11:08)
--- NOTE | 2019-04-24 11:25 | Ophthalmology Operative Report ---
Cataract removal/placement IOL PREOPERATIVE DIAGNOSIS: Cataract Left Eye POSTOPERATIVE DIAGNOSIS: Cataract Left Eye PROCEDURE: Cataract removal and placement of posterior chamber implant, left eye SURGEON: Julien Cabrera ANESTHESIA: Topical with sedation COMPLICATIONS: None ESTIMATED BLOOD LOSS: Minimal DESCRIPTION OF PROCEDURE: After proper informed consent was obtained, the patient, a 78 female, was taken to the Operating Room and the left eye was anesthetized with tetracaine. The left eye was then prepped and draped in the usual manner. A wire lid speculum was placed. A paracentesis was made at the left hand position. Preservative free lidocaine was injected into the anterior chamber followed by viscoelastic. A clear corneal incision was made in the temporal position. A capsulorrhexis was preformed and the central nuclear and cortical material were removed. The posterior capsule was polished and an Rhett 21.0 AU00T0 was placed into the capsular bag. The residual viscoelastic was aspirated and balanced saline solution was injected into the anterior chamber. Moxifloxacin was injected into the anterior chamber. The wound was checked and found to be water tight. The patient tolerated the procedure well without complications. JULIEN CABRERA MD Apr 24, 2019 11:25
[2019-04-24 11:35] VITALS: BP 126/70
--- NOTE | 2019-04-24 14:30 | Anesthesia-General Post-Op ---
MAC Patient Condition Mental Status/LOC: Same as Preop Cardiovascular: Satisfactory Nausea/Vomiting: Absent Respiratory: Satisfactory Pain: Controlled Complications: Absent Post Op Complications Complications None Follow Up Care/Instructions Patient Instructions None needed. Anesthesiology Discharge Order Discharge Order Patient is doing well, no complaints, stable vital signs, no apparent adverse anesthesia problems. No complications reported per nursing. MATTHEW BETANCUR CRNA Apr 24, 2019 14:30
== END 2019-04-24 11:35 | disposition home or self-care (01) ==
LOC: SDC 09:32
PROVIDERS: ATTEND Specialist
DX: H25.12 Age-related nuclear cataract, left eye (principal); I10 Essential (primary) hypertension; E78.5 Hyperlipidemia, unspecified; K21.9 Gastro-esophageal reflux disease without esophagitis; Z87.891 Personal history of nicotine dependence; Z79.82 Long term (current) use of aspirin; Z79.899 Other long term (current) drug therapy; Z83.3 Family history of diabetes mellitus; Z80.3 Family history of malignant neoplasm of breast

== ENCOUNTER → 2020-02-22 | Outpatient (CLI) | payer MEDICARE, OTHER ==
[~2020-02-22] MED LIST changes: +AMLO-250 PO; -AMLO5TAB9 PO; +ASPI-1238 PO; -ASPI-983 PO
--- NOTE | 2020-02-22 13:17 | Diagnostic Imaging Report ---
INDICATION: Routine screening. Comparison is made with prior mammogram from 02/19/2019 and 02/03/2018. 2-D and 3-D screening mammography was performed with CAD. Scattered fibroglandular densities are identified bilaterally. Circumscribed nodular densities right breast are stable. Benign parenchymal and vascular calcifications bilaterally are noted. No new mass or malignant-appearing microcalcifications are seen. Axillae are unremarkable. IMPRESSION: BI-RADS Category 2 No mammographic features suspicious for malignancy are identified. ACR BI-RADS Category 2: Benign findings. Result letter will be mailed to the patient. Note: At least 10% of breast cancer is not imaged by mammography. Dictated by: Dictated on workstation # [id number]
== END ==
LOC: RAD 09:30
PROVIDERS: ATTEND Internal Medicine
DX: Z12.31 Encounter for screening mammogram for malignant neoplasm of breast (principal)
CPT/HCPCS: 77063; 77067

== ENCOUNTER 2020-04-29 09:32 | Emergency (ER) | payer MEDICARE, OTHER ==
[~2020-04-29] VITALS: Ht 165.1 cm; Wt 77.1 kg
[~2020-04-29 09:32] MED LIST changes: -FOLI0.4T2 PO; +FOLI0.4T6 PO; -LISI-552 PO; +LISI20TA26 PO
--- NOTE | 2020-04-29 09:38 | ED General ---
General Stated Complaint: SYNCOPAL EPISODE History of Present Illness Date Seen by Provider: Apr 29, 2020 Time Seen by Provider: 09:38 Initial Comments 79-year-old female presents with a brief syncopal event. Patient reports that she was at the grocery store this morning and was nauseous while she was at the grocery store. She went to check out before she was finished shopping because she was nauseated and felt like she needed to get out of her vehicle. Shortly after she checked out she took a few steps away from the checkout counter and had a brief syncope event. She does not remember hitting her head. She does have some mild pain on the left side of her head. She denied any other symptoms prior to syncope besides feeling nauseated. She does report that last night she received her second dose of the Moderna Covid vaccine. She denies chest pain, shortness of breath, fever, chills, diarrhea, focal weakness. EMS reports that when they initially arrived she was a little confused but that has resolved. Allergies and Home Medications Allergies Coded Allergies: No Known Drug Allergies (Unverified , 06/29/14) Home Medications Amlodipine Besylate 5 Mg Tablet, 5 MG PO DAILY, (Reported) Apremilast 30 Mg Tablet, 30 MG PO DAILY, (Reported) Aspirin 81 Mg Tablet.dr, 81 MG PO DAILY, (Reported) Folic Acid 0.4 Mg Tablet, 0.4 MG PO DAILY, (Reported) Lisinopril 20 Mg Tablet, 20 MG PO DAILY, (Reported) [place]-3/Dha/Epa/Fish Oil 1,000 Mg Capsule, 1,000 MG PO DAILY, (Reported) Simvastatin 20 Mg Tablet, 20 MG PO HS, (Reported) Patient Home Medication List Home Medication List Reviewed: Yes Review of Systems Review of Systems Constitutional: see HPI; No chills, No fever EENTM: see HPI Respiratory: No cough, No dyspnea on exertion, No short of breath Cardiovascular: No chest pain, No palpitations Gastrointestinal: No abdominal pain, No nausea, No vomiting Genitourinary: no symptoms reported Musculoskeletal: no symptoms reported Skin: no symptoms reported Psychiatric/Neurological: See HPI Hematologic/Lymphatic: No Symptoms Reported Immunological/Allergic: no symptoms reported Past Vpljast-Zazgfx-Qylsoi Hx Past Med/Social Hx: Reviewed Nursing Past Med/Soc Hx Patient Social History Type Used: Cigarettes 2nd Hand Smoke Exposure: No Recent Hopitalizations: No Immunizations Up To Date Date of Influenza Vaccine: Jan 29, 2017 Seasonal Allergies Seasonal Allergies: Yes Past Medical History Surgeries: Yes Orthopedic Respiratory: No Cardiac: Yes (SEES DR MARTINEZ ) Hypertension Neurological: No Genitourinary: No Gastrointestinal: Yes Gastroesophageal Reflux, Chronic Constipation Musculoskeletal: Yes Arthritis Endocrine: Yes (WHEN YOUNGER HAD THROID PROBLEMS ) HEENT: No 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 ) Psychosocial: No Integumentary: Yes Psoriasis Blood Disorders: No Adverse Reaction/Blood Tranf: Yes Family Medical History Cancer, Diabetes, Hypertension, Other Conditions/Hx Physical Exam Vital Signs Vital Signs - First Documented 04/29/20 09:32 Temp 36.2 Pulse 93 Resp 21 B/P (MAP) 134/69 (90) Pulse Ox 96 O2 Delivery Room Air Capillary Refill : Height, Weight, BMI Height: 5'5.00" Weight: 180lbs. 0.0oz. 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 Norm as Tested Skin: Normal Color, Warm/Dry Progress/Results/Core Measures Suspected Sepsis SIRS Temperature: Pulse: Respiratory Rate: Laboratory Tests 04/29/20 10:00: White Blood Count 9.7 Blood Pressure / Mean: Laboratory Tests 04/29/20 10:00: Creatinine 0.95, Platelet Count 290, Total Bilirubin 0.6 Results/Orders Lab Results Laboratory Tests Test 04/29/20 09:46 04/29/20 10:00 Range/Units Glucometer 104 70-110 MG/DL White Blood Count 9.7 4.3-11.0 10^3/uL Red Blood Count 4.61 3.80-5.11 10^6/uL Hemoglobin 13.0 11.5-16.0 g/dL Hematocrit 40 35-52 % Mean Corpuscular Volume 88 80-99 fL Mean Corpuscular Hemoglobin 28 25-34 pg Mean Corpuscular Hemoglobin Concent 32 32-36 g/dL Red Cell Distribution Width 13.2 10.0-14.5 % Platelet Count 290 130-400 10^3/uL Mean Platelet Volume 9.5 9.0-12.2 fL Immature Granulocyte % (Auto) 0 % Neutrophils (%) (Auto) 74 42-75 % Lymphocytes (%) (Auto) 18 12-44 % Monocytes (%) (Auto) 7 0-12 % Eosinophils (%) (Auto) 1 0-10 % Basophils (%) (Auto) 0 0-10 % Neutrophils # (Auto) 7.2 1.8-7.8 10^3/uL Lymphocytes # (Auto) 1.7 1.0-4.0 10^3/uL Monocytes # (Auto) 0.7 0.0-1.0 10^3/uL Eosinophils # (Auto) 0.1 0.0-0.3 10^3/uL Basophils # (Auto) 0.0 0.0-0.1 10^3/uL Immature Granulocyte # (Auto) 0.0 0.0-0.1 10^3/uL Sodium Level 138 135-145 MMOL/L Potassium Level 3.7 3.6-5.0 MMOL/L Chloride Level 105 98-107 MMOL/L Carbon Dioxide Level 23 21-32 MMOL/L Anion Gap 10 5-14 MMOL/L Blood Urea Nitrogen 16 7-18 MG/DL Creatinine 0.95 0.60-1.30 MG/DL Estimat Glomerular Filtration Rate 57 BUN/Creatinine Ratio 17 Glucose Level 116 H 70-105 MG/DL Calcium Level 8.5 8.5-10.1 MG/DL Corrected Calcium 8.5 8.5-10.1 MG/DL Total Bilirubin 0.6 0.1-1.0 MG/DL Aspartate Amino Transf (AST/SGOT) 17 5-34 U/L Alanine Aminotransferase (ALT/SGPT) 16 0-55 U/L Alkaline Phosphatase 108 40-136 U/L Troponin I < 0.028 <0.028 NG/ML C-Reactive Protein High Sensitivity 0.48 0.00-0.50 MG/DL Total Protein 7.2 6.4-8.2 GM/DL Albumin 4.0 3.2-4.5 GM/DL My Orders Orders - PRICE OROPEZA DO Ct Head Wo (04/29/20 09:38) Accucheck Stat ONCE (04/29/20 09:38) Ekg Tracing (04/29/20 09:38) Monitor-Rhythm Ecg Trace Only (04/29/20 09:38) Orthostatic Vital Signs (6-12y (04/29/20 09:38) Cbc With Automated Diff (04/29/20 09:38) Comprehensive Metabolic Panel (04/29/20 09:38) Hs C Reactive Protein (04/29/20 09:38) Troponin I (04/29/20 09:38) Ondansetron Injection (Zofran Injectio (04/29/20 09:45) Medications Given in ED Current Medications Medications Dose Ordered Sig/Amari Route Start Time Stop Time Status Last Admin Dose Admin Ondansetron HCl 4 mg ONCE ONCE IVP 04/29/20 09:45 04/29/20 09:46 DC 04/29/20 10:21 4 MG Vital Signs/I&O 04/29/20 04/29/20 04/29/20 09:32 09:50 12:08 Temp 36.2 36.2 Pulse 93 85 86 95 105 Resp 21 17 B/P (MAP) 134/69 (90) 120/61 148/83 (90) 113/67 123/61 Pulse Ox 96 96 O2 Delivery Room Air Room Air Capillary Refill : Progress Note : Time: 11:45 Progress Note Patient with no additional syncopal events. Patient reports that she is feeling significantly better. She does have a minor hematoma from her fall. Otherwise negative head CT and evaluation. Patient feels it is likely related to her Moderna vaccination. Patient was offered admission for observation but declined . Patient stable and will be discharged. She will return to the ER as needed ECG Initial ECG Impression Date: Apr 29, 2020 Initial ECG Impression Time: 09:41 Initial ECG Rate: 89 Initial ECG Rhythm: Normal Sinus Initial ECG Impression: Normal Comment No acute findings Diagnostic Imaging Diagonstic Imaging: CT Plain Films/CT/US/NM/MRI: head Comments [facility] [place] NAME: BENJAMIN JARRELL [facility] REC#: [id number] PT STATUS: REG ER : 1940 PHYSICIAN: PRICE OROPEZA DO ADMIT DATE: 04/29/20/ER Signed Date of Exam:04/29/20 CT HEAD WO PROCEDURE: CT head without contrast. TECHNIQUE: Multiple contiguous axial images were obtained through the brain without the use of intravenous contrast. Auto Exposure Controls were utilized during the CT exam to meet ALARA standards for radiation dose reduction. INDICATION: Syncope The ventricles are normal in size, shape and position. There are no masses or hemorrhages. There are no extra-axial fluid collections. There is a scalp hematoma in the left temporoparietal region. There are no skull fractures seen. IMPRESSION: Left temporoparietal scalp hematoma. No acute intracranial abnormality seen. Dictated by: Dictated on workstation # [id number] Dict: 04/29/20 1109 Trans: 04/29/20 1110 [id number] Interpreted by: GLADYS TEE MD Electronically signed by: GLADYS TEE MD 04/29/20 1110 Departure Impression Primary Impression: Syncope Qualified Codes: R55 - Syncope and collapse Additional Impression: Minor head injury with loss of consciousness Qualified Codes: S06.9X9A - Unspecified intracranial injury with loss of consciousness of unspecified duration, initial encounter Disposition: 01 HOME, SELF-CARE Condition: Stable Departure-Patient Inst. Referrals: ISABELLE ADAME DO (PCP/Family) Primary Care Physician Patient Instructions: Vasovagal Response, Syncope (Fainting), Minor Head Injury Add. Discharge Instructions: Follow-up with Dr. Adame as needed PRICE OROPEZA DO Apr 29, 2020 09:38
[2020-04-29] MEDS ORDERED: ONDANSETRON 4 MG/2 ML (SDV) Z0FRAN IVP ONE (09:45)
[2020-04-29 10:06] LABS: BASOPHILS % (AUTO) 0 % (0-10); EOSINOPHILS # (AUTO) 0.1 10^3/uL (0.0-0.3); EOSINOPHILS % (AUTO) 1 % (0-10); HEMATOCRIT 40 % (35-52); LYMPHOCYTES # (AUTO) 1.7 10^3/uL (1.0-4.0); LYMPHOCYTES % (AUTO) 18 % (12-44); MEAN CORPUSCULAR HEMOGLOBIN 28 pg (25-34); MEAN CORPUSCULAR HGB CONC 32 g/dL (32-36); MEAN CORPUSCULAR VOLUME 88 fL (80-99); MEAN PLATELET VOLUME 9.5 fL (9.0-12.2); MONOCYTES # (AUTO) 0.7 10^3/uL (0.0-1.0); MONOCYTES % (AUTO) 7 % (0-12); NEUTROPHILS # (AUTO) 7.2 10^3/uL (1.8-7.8); NEUTROPHILS % (AUTO) 74 % (42-75); PLATELET COUNT 290 10^3/uL (130-400); WHITE BLOOD COUNT 9.7 10^3/uL (4.3-11.0)
[2020-04-29 10:20] LABS: CHLORIDE 105 MMOL/L (98-107); POTASSIUM 3.7 MMOL/L (3.6-5.0); SODIUM 138 MMOL/L (135-145)
[2020-04-29 10:21] LABS: CALCIUM 8.5 MG/DL (8.5-10.1)
[2020-04-29 10:23] LABS: GLUCOSE 116 MG/DL (70-105); TOTAL PROTEIN 7.2 GM/DL (6.4-8.2)
[2020-04-29 10:24] LABS: BILIRUBIN,TOTAL 0.6 MG/DL (0.1-1.0); CARBON DIOXIDE 23 MMOL/L (21-32)
[2020-04-29 10:26] LABS: ALKALINE PHOSPHATASE 108 U/L (40-136); CREATININE SERUM 0.95 MG/DL (0.60-1.30); GFR ESTIMATED 57
[2020-04-29 10:27] LABS: BUN/CREATININE RATIO 17
[2020-04-29 10:29] LABS: ALANINE AMINOTRANSFERASE 16 U/L (0-55)
--- NOTE | 2020-04-29 11:11 | Diagnostic Imaging Report ---
PROCEDURE: CT head without contrast. TECHNIQUE: Multiple contiguous axial images were obtained through the brain without the use of intravenous contrast. Auto Exposure Controls were utilized during the CT exam to meet ALARA standards for radiation dose reduction. INDICATION: Syncope The ventricles are normal in size, shape and position. There are no masses or hemorrhages. There are no extra-axial fluid collections. There is a scalp hematoma in the left temporoparietal region. There are no skull fractures seen. IMPRESSION: Left temporoparietal scalp hematoma. No acute intracranial abnormality seen. Dictated by: Dictated on workstation # [id number]
[2020-04-29 12:08] VITALS: BP 148/83
== END 2020-04-29 12:08 | disposition home or self-care (01) ==
LOC: EDUNIT# 09:32 → ER 09:34
DX: S06.9X9A Unspecified intracranial injury with loss of consciousness of unspecified duration, initial encounter (principal); R55 Syncope and collapse; I10 Essential (primary) hypertension; Z85.41 Personal history of malignant neoplasm of cervix uteri; Z83.3 Family history of diabetes mellitus; Z82.49 Family history of ischemic heart disease and other diseases of the circulatory system; Z80.9 Family history of malignant neoplasm, unspecified; Z79.82 Long term (current) use of aspirin; X58.XXXA Exposure to other specified factors, initial encounter
CPT/HCPCS: 36415; 70450; 80053; 82962; 84484; 85025; 86141; 93005; 93041

== ENCOUNTER → 2021-02-22 | Outpatient (CLI) | payer MEDICARE, OTHER ==
--- NOTE | 2021-02-22 11:26 | Diagnostic Imaging Report ---
Indication: Routine screening. Comparison is made with prior mammogram from 02/22/2020 and 02/19/2019. 2-D and 3-D bilateral screening mammography was performed with CAD. Scattered fibroglandular densities are identified bilaterally. Benign nodule in the upper right breast is noted. This appears stable. No new mass or malignant-appearing microcalcifications are seen. Benign parenchymal vascular calcifications are noted. Axillae are unremarkable. IMPRESSION: BI-RADS Category 2 No mammographic features suspicious for malignancy are identified. ACR BI-RADS Category 2: Benign findings. Result letter will be mailed to the patient. Note: At least 10% of breast cancer is not imaged by mammography. Dictated by: Dictated on workstation # [id number]
== END ==
LOC: RAD 09:45
PROVIDERS: ATTEND Internal Medicine
DX: Z12.31 Encounter for screening mammogram for malignant neoplasm of breast (principal)
CPT/HCPCS: 77063; 77067

== ENCOUNTER → 2021-08-04 | Outpatient (CLI) | payer MEDICARE, OTHER | LOC: CARD 09:00 | PROVIDERS: ATTEND Physician Assistant | DX: I11.9 Hypertensive heart disease without heart failure (principal) | CPT/HCPCS: 93306 ==

== ENCOUNTER → 2021-08-07 | Outpatient (CLI) | payer MEDICARE, OTHER ==
[~2021-08-07] MED LIST changes: +CATHETER FLUSH 10 ML SYR IVP PRN; +REGADENOSON 0.4 MG/5 ML SYR (LEXISCAN) IV ONE
[2021-08-07 09:04] VITALS: BP 178/76
--- NOTE | 2021-08-07 11:49 | Cardiology Stress Test Report ---
Stress Test Report Date of Procedure/Referring: Date of Procedure: Aug 07, 2021 PCP Merry Chicas DO Admitting Physician Admitting Physician: Attending Physician: Sheila Carroll Indications: HTN Baseline Heart Rate: 58 Baseline Blood Pressure: Blood Pressure Systolic: 178 Blood Pressure Diastolic: 76 Baseline Vitals Vital Signs Date Time Temp Pulse Resp B/P (MAP) Pulse Ox O2 Delivery O2 Flow Rate FiO2 08/07/21 09:04 91 17 178/76 (110) 99 Baseline EKG: Baseline EKG: NSR Summary After explaining the procedure to the patient, she signed a consent and then brought to the stress nuclear laboratory. Patient received 0.4 mg Lexiscan for stress test, ECG, heart rate and blood pressure were monitored continuously. Resting and stress dose of radio tracer were injected, imaging was acquired and reviewed in short axis, horizontal long axis and vertical long axis views. TID: 1.04 SSS: 6 SDS: 4 EF: 83 1. Patient tolerated Lexiscan well 2. Mild breast attenuation with mild reversible ischemia involving the mid to apical inferior wall and inferior apex. 3. Normal left ventricular size, ejection fraction 83% Copy Copies To 1: MERRY CHICAS BASHAR J MD Aug 07, 2021 11:49
== END ==
LOC: CARD 07:30
PROVIDERS: ATTEND Physician Assistant
DX: I10 Essential (primary) hypertension (principal); I25.10 Atherosclerotic heart disease of native coronary artery without angina pectoris
CPT/HCPCS: 78452; 93017; A9502

== ENCOUNTER 2021-08-23 09:00 | Day surgery (SDC) | payer MEDICARE, OTHER ==
[~2021-08-23] VITALS: Ht 165.1 cm; Wt 88.4 kg
[2021-08-23] VITALS (10 sets, daily range): BP systolic 106–138; BP diastolic 45–71
[2021-08-23 07:50] LABS: HEMATOCRIT 40 % (35-52); HEMOGLOBIN 13.1 g/dL (11.5-16.0); MEAN CORPUSCULAR HEMOGLOBIN 28 pg (25-34); MEAN CORPUSCULAR HGB CONC 33 g/dL (32-36); MEAN CORPUSCULAR VOLUME 87 fL (80-99); MEAN PLATELET VOLUME 9.4 fL (9.0-12.2); PLATELET COUNT 321 10^3/uL (130-400); WHITE BLOOD COUNT 5.4 10^3/uL (4.3-11.0)
[2021-08-23 07:51] LABS: BILIRUBIN,URINE NEGATIVE (NEGATIVE); CLARITY,URINE CLEAR; COLOR,URINE YELLOW; GLUCOSE, URINE (UA) NEGATIVE (NEGATIVE); KETONES,URINE NEGATIVE (NEGATIVE); LEUKOCYTE ESTERASE ,URINE 1+ (NEGATIVE); NITRITE,URINE NEGATIVE (NEGATIVE); PROTEIN,URINE NEGATIVE (NEGATIVE)
--- NOTE | 2021-08-23 07:53 | Diagnostic Imaging Report ---
INDICATION: Heart catheter screening. FINDINGS: Portable chest. The lungs are well-aerated and clear. Heart is not enlarged. No pulmonary edema or hilar adenopathy. No pneumothorax or pleural effusion. IMPRESSION: Normal portable chest. Dictated by: Dictated on workstation # [id number]
[2021-08-23 08:04] LABS: BACTERIA,URINE TRACE /HPF; RBC,URINE 0-2 /HPF; WBC,URINE 0-2 /HPF
[2021-08-23 08:09] LABS: ALBUMIN 3.9 GM/DL (3.2-4.5); BILIRUBIN,TOTAL 0.4 MG/DL (0.1-1.0); CALCIUM 8.7 MG/DL (8.5-10.1); CREATININE SERUM 0.79 MG/DL (0.60-1.30); POTASSIUM 3.8 MMOL/L (3.6-5.0); TOTAL PROTEIN 6.8 GM/DL (6.4-8.2)
[2021-08-23 08:16] LABS: INR 0.9 (0.8-1.4); PROTHROMBIN TIME PATIENT 12.1 SEC (12.2-14.7)
[~2021-08-23 09:00] MED LIST changes: -CATHETER FLUSH 10 ML SYR IVP PRN; +HEParin (CATH LAB) 2,000 ML IV ONE; +HEParin 1000 UNIT/ML (10ML VIAL) FOR BOLUS ONE; +LIDOCAINE 1% INJ 20 ML VIAL ONE; +MIDAZOLAM 5 MG/5 ML (VERSED) VIAL ONE; +NITRO DRIP 25000 MCG/D5W 250 ML IV ONE; +NS IV 1000 ML 1,000 ML IV SCH; +NS IV 1000 ML 1,000 ML ONE; +PANT40TA52 PO; -REGADENOSON 0.4 MG/5 ML SYR (LEXISCAN) IV ONE; +VERAPAMIL 5 MG/2 ML (CALAN) VIAL IV ONE; +fentaNYL INJ 100 MCG/2 ML AMP ONE
--- NOTE | 2021-08-23 09:06 | Conscious Sedation/ASA ---
Conscious Sedation Pre-Proced Time 09:06 ASA Score 3 For ASA 3 and 4: Consider anesthesia and medical clearance. Also, for patients with a history of failed moderate sedation consider anesthesia. Airway Lungs Heart ASA score ASA 1: a normal healthy patient ASA 2: a patient with a mild systemic disease (mid diabetes, controlled hypertension, obesity x ASA 3: a patient with a severe systemic disease that limits activity (angina, COPD, prior Myocardial infarction) ASA 4: a patient with an incapacitating disease that is a constant threat to life (CHF, renal failure) ASA 5: a moribund patient not expected to survive 24 hrs. (ruptured aneurysm) ASA 6: a declared brain- patient whose organs are being harvested. For emergent operations, add the letter E after the classification Mallampati Classification Grade 3 Sedation Plan Analgesia, Amnesia, Plan communicated to team members, Discussed options with patient/fam, Discussed risks with patient/fam The patient is an appropriate candidate to undergo the planned procedure, sedation, and anesthesia. The patient immediately re-assessed prior to indication. CASSI MARTINEZ MD Aug 23, 2021 09:06
--- NOTE | 2021-08-23 09:26 | Discharge Inst-Post CATH ---
Discharge Inst-CATH/EP Problems Reviewed?: Yes Post Cardiac Cath/EP D/C Inst Follow Up/Plan Appointment with Dr. Abrams's office in 2 to 4 weeks <b>CARDIAC CATH/EP PROCEDURE DISCHARGE INSTRUCTIONS</b> ACTIVITY * Go Home directly and rest. * Limit activity of the leg (or wrist if it was used) for 7 days including aer obics, swimming, jogging, bicycling, etc. * Restrict stair-climbing for 7 days if possible, if not, climb up with your non-cath leg, then bring together on the same step. * Avoid lifting, pushing, pulling or excessive movement of the affected extremi ty for 7 days. * Customary sexual activity may be resumed after 2 days-use caution not to use a position that strains or causes pain to the affected extremity. * No driving for 24 hours. * NO SMOKING. * Avoid straining for bowel movements for 7 days. * Gentle walking on level ground is allowed. * Returning to work will depend on the type of procedure and the results. Your doctor will discuss this with you. CALL YOUR DOCTOR FOR ANY OF THE FOLLOWING: *If bleeding from the puncture site occurs- Apply gentle pressure to site with clean cloth and call your doctor or EMS. * If a knot or lump forms under the skin, increases in size, or causes pain. * If bruising appears to be worsening or moving further down your leg instead of disappearing. * Temperature above 101 F. CARE OF YOUR GROIN INCISION; * Bruising or purple discoloration of the skin near the puncture site is common. * You may shower only, no bathtub bathing for 5 days. Be careful to avoid slipping as your leg may feel stiff. * If a closure device was used on your femoral artery, please see the attached guide regarding care of the device and your leg. * Leave dressing on FOR 24 hours. CARE OF YOUR WRIST INCISION; * Bruising or purple discoloration of the skin near the puncture site is common. * You may shower. * DO NOT submerge wrist. * Leave dressing on FOR 24 hours. CASSI ABRAMS MD Aug 23, 2021 09:26
[2021-08-23] MEDS ORDERED: NS IV 1000 ML 1,000 ML IV SCH (09:30)
--- NOTE | 2021-08-23 09:30 | Cardiac Cath Report ---
Cardiac Cath Report Physician (s)/Quiller Tender (s) Physician CASSI MARTINEZ MD Pre-Procedure Diagnosis Pre-Procedure Diagnosis: Coronary artery disease Post-Procedure Note Procedure Start Date: Aug 23, 2021 Name of Procedure: Left heart catheterization Findings/Procedure Note PROCEDURE NOTE: 80-year-old lady with history of hypertension, hyperlipidemia, had an abnormal stress test, scheduled for cardiac catheterization possible PTCA. After explaining the procedure to the patient, all pros and cons were explained, all questions were answered. The patient signed the consent and then she was placed on the cardiac catheterization laboratory. Groin was prepped SL fashion local anesthesia was used. Sheath placed in the right radial artery, Grant catheter was advanced and prolapsed to the left ventricular cavity, pressure was measured, pullback LV to aorta was done, engaged the right coronary artery and angiogram was done, I was unable to engage the left coronary system and I attempted multiple nonselective angiogram, I was unable to see the distal LAD subsequently I exchanged the catheter and used Timothy left 3.5 diagnostic catheter and I engaged the left main and then performed angiogram again. At the end of the procedure the sheath was removed. Vascular band was used FINDINGS: Hemodynamics LV 105/15 mean of 25 Aorta 104/58 mean of 70 ANATOMY: Left Main has mild proximal disease nonobstructive disease Left Anterior Descending slightly tortuous with mild disease no significant obstructive disease Left Circumflex has mild disease nonobstructive disease Right Coronary Artery is large dominant artery with mild disease nonobstructive disease LV Gram was not done, pressure was measured CONCLUSION: 1. Mild coronary artery disease nonobstructive disease 2. Elevated left ventricular end-diastolic pressure DISCUSSION AND RECOMMENDATION: Medical therapy is recommended no intervention is warranted, abnormal stress test is probably due to hypertensive heart disease and small vessel disease Anesthesia Type: Conscious Sedation Estimated blood loss (mL): 15 ml Contrast Amount: 55 ml Total Radiation Dose: 325 mGy Post-Procedure Diagnosis Post-operative diagnosis: Chest pain Coronary artery disease Hypertension Hyperlipidemia CASSI MARTINEZ MD Aug 23, 2021 09:30
== END 2021-08-23 12:20 | disposition home or self-care (01) ==
LOC: CATH 09:00 → SDC 09:45 → CATH 12:20
PROVIDERS: ATTEND Internal Medicine Cardiovascular Disease
DX: I25.10 Atherosclerotic heart disease of native coronary artery without angina pectoris (principal); I10 Essential (primary) hypertension; E78.5 Hyperlipidemia, unspecified; I65.23 Occlusion and stenosis of bilateral carotid arteries; I27.20 Pulmonary hypertension, unspecified; L40.9 Psoriasis, unspecified; I34.0 Nonrheumatic mitral (valve) insufficiency; Z87.891 Personal history of nicotine dependence; Z79.82 Long term (current) use of aspirin
CPT/HCPCS: 71045; 80053; 80061; 81000; 85027; 85610; 85730; 87081; 93005; 93458; C1894; 36415

== ENCOUNTER → 2022-02-27 | Outpatient (CLI) | payer MEDICARE, OTHER ==
[~2022-02-27] MED LIST changes: -HEParin (CATH LAB) 2,000 ML IV ONE; -HEParin 1000 UNIT/ML (10ML VIAL) FOR BOLUS ONE; -LIDOCAINE 1% INJ 20 ML VIAL ONE; -MIDAZOLAM 5 MG/5 ML (VERSED) VIAL ONE; -NITRO DRIP 25000 MCG/D5W 250 ML IV ONE; -NS IV 1000 ML 1,000 ML IV SCH; -NS IV 1000 ML 1,000 ML ONE; -VERAPAMIL 5 MG/2 ML (CALAN) VIAL IV ONE; -fentaNYL INJ 100 MCG/2 ML AMP ONE
--- NOTE | 2022-02-27 14:24 | Diagnostic Imaging Report ---
Indication: Routine screening. Comparison is made with prior mammogram 02/22/2021 and 02/22/2020. 2-D and 3-D bilateral screening mammography was performed with CAD. CAD is utilized. The current study was also evaluated with a Computer Aided Detection (CAD) system. Scattered fibroglandular densities are identified bilaterally. Intraparenchymal lymph node in the upper outer right breast is stable. There are scattered benign parenchymal and vascular calcifications bilaterally. No spiculated mass or malignant appearing microcalcifications are seen. Axillae are unremarkable. IMPRESSION: BI-RADS Category 2 No mammographic features suspicious for malignancy are identified. ACR BI-RADS Category 2: Benign findings. Result letter will be mailed to the patient. Note: At least 10% of breast cancer is not imaged by mammography. Dictated by: Dictated on workstation # [id number]
== END ==
LOC: RAD 07:43
PROVIDERS: ATTEND Internal Medicine
DX: Z12.31 Encounter for screening mammogram for malignant neoplasm of breast (principal)
CPT/HCPCS: 77063; 77067